=== PATIENT | male | born 1960 ===

== ENCOUNTER 2021-10-22 02:13 | Emergency (ER) | payer SELFPAY ==
[2021-10-22] MEDS ORDERED: SODIUM CHLORIDE 0.9% 1000 ML 1,000 ML IV ONE (02:20)
[2021-10-22] MEDS ORDERED: ASPIRIN 81 MG TAB CHEW PO ONE (02:20)
[2021-10-22] MEDS ORDERED: MORPHINE 2 MG/1 ML INJ IV ONE (02:21)
[2021-10-22] MEDS ORDERED: NITROGLYCERIN 0.4 MG TAB SUBL SL PRN (02:21)
--- NOTE | 2021-10-22 02:25 | Emergency Department Report ---
ED General Adult HPI - General Stated complaint: CHEST PAIN PUI?: No Time Seen by Provider: 10/22/21 02:19 Source: patient - History of Present Illness Initial comments: This is a 61-year-old male with medical history of hypertension came to the ER today with 1 hour history of pressure-like chest pain. According to the charge nurse patient was clutching his chest while in the waiting area and fell down but not a syncopal episode. Patient endorses numbness to his left shoulder and left upper extremity. Patient denies anything makes it better or any makes it worse. Patient denies myocardial infarction with cardiac stents in the past. Patient denies smoking or using cocaine and also denies family history of myocardial infarction less than 65 years old. Patient denies any other symptoms. - Related Data Previous Rx's Medication Instructions Recorded Last Taken Type Cyclobenzaprine HCl [Flexeril 5 MG 5 mg PO TID #12 tab 10/22/21 Unknown Rx TAB] Allergies Allergy/AdvReac Type Severity Reaction Status Date / Time No Known Allergies Allergy Unverified 10/22/21 02:34 ED Review of Systems ROS: Stated complaint: CHEST PAIN Other details as noted in HPI Comment: All other systems reviewed and negative Constitutional: no symptoms reported, see HPI Eyes: as per HPI ENT: as per HPI Respiratory: no symptoms reported Cardiovascular: chest pain. denies: palpitations, dyspnea on exertion, orthopnea, edema, syncope Endocrine: no symptoms reported, see HPI Gastrointestinal: as per HPI Genitourinary: as per HPI Musculoskeletal: as per HPI Skin: as per HPI Neurological: numbness (To left shoulder and left upper extremity.) Psychiatric: as per HPI Hematological/Lymphatic: as per HPI ED Past Medical Hx - Past Medical History Previous Medical History?: Yes Hx Hypertension: Yes - Medications Home Medications: Home Medications Medication Instructions Recorded Confirmed Last Taken Type Cyclobenzaprine HCl [Flexeril 5 MG 5 mg PO TID #12 tab 10/22/21 Unknown Rx TAB] ED Physical Exam - General Limitations: No Limitations General appearance: alert, in no apparent distress - Head Head exam: Present: atraumatic, normocephalic, normal inspection - Eye Eye exam: Present: normal appearance, PERRL, EOMI Pupils: Present: normal accommodation - ENT ENT exam: Present: normal exam, normal orophraynx - Neck Neck exam: Present: normal inspection, full ROM - Respiratory Respiratory exam: Present: normal lung sounds bilaterally - Cardiovascular Cardiovascular Exam: Present: regular rate, normal rhythm, normal heart sounds - GI/Abdominal GI/Abdominal exam: Present: soft - Extremities Exam Extremities exam: Present: normal inspection, full ROM, normal capillary refill - Back Exam Back exam: Present: normal inspection, full ROM - Neurological Exam Neurological exam: Present: alert, altered, oriented X3, CN II-XII intact - Psychiatric Psychiatric exam: Present: normal affect, normal mood - Skin Skin exam: Present: warm, normal color ED Course Vital Signs 10/22/21 10/22/21 10/22/21 02:22 02:45 03:04 Temperature 98 F Pulse Rate 75 76 Respiratory 18 18 Rate Blood Pressure 207/115 Blood Pressure 170/93 [Left] O2 Sat by Pulse 100 97 100 Oximetry 10/22/21 10/22/21 10/22/21 03:28 03:30 03:46 Temperature Pulse Rate 69 70 70 Respiratory 12 14 11 L Rate Blood Pressure 122/76 122/76 Blood Pressure [Left] O2 Sat by Pulse 96 95 94 Oximetry 10/22/21 10/22/21 10/22/21 04:00 04:16 04:30 Temperature Pulse Rate 64 66 77 Respiratory 11 L 11 L 15 Rate Blood Pressure 120/70 120/70 Blood Pressure [Left] O2 Sat by Pulse 95 94 96 Oximetry ED Medical Decision Making - Lab Data Result diagrams: 10/22/21 02:33 10/22/21 02:33 - EKG Data -: EKG Interpreted by Me EKG shows normal: sinus rhythm Rate: normal - EKG Data When compared to previous EKG there are: previous EKG unavailable Interpretation: no acute changes, normal EKG 10/22/21 02:24 SINUS RHYTHM AT 71 BPM; NO ST ELEVATION OR DEPRESSION; NO WELLEN WAVES. - Medical Decision Making Delta troponin negative patient states that all his symptoms resolved. But only with neck soreness that is worsened with movement. I have informed patient that he must make a follow-up appointment with primary care provider to be seen within 2 days for possible outpatient stress test and patient understood. Patient was informed to return to the ER if there are any new symptom. Critical care attestation.: If time is entered above; I have spent that time in minutes in the direct care of this critically ill patient, excluding procedure time. ED Disposition Clinical Impression: Non-cardiac chest pain, Sore neck Disposition: 01 HOME / SELF CARE / HOMELESS Is pt being admited?: No Does the pt Need Aspirin: No Condition: Stable Instructions: Nonspecific Chest Pain, Adult Additional Instructions: Make a follow-up appointment with your primary care provider to be seen within 2 to 3 days for further outpatient work-up for noncardiac chest pain with possible stress test. Go to the any emergency room if you experience any chest discomfort Prescriptions: Cyclobenzaprine HCl [Flexeril 5 MG TAB] 5 mg PO TID #12 tab Time of Disposition: 05:38
[2021-10-22 02:43] LABS: Hematocrit 44.6 % (35.5-45.6); Hemoglobin 15.1 gm/dl (11.8-15.2); Mean Corpuscular HGB Conc 34 % (32-34); Mean Corpuscular Volume 89 fl (84-94); Platelet Count 170 K/mm3 (140-440); Red Blood Count 5.02 M/mm3 (3.65-5.03); Red Cell Distribution Width 13.2 % (13.2-15.2)
--- NOTE | 2021-10-22 02:54 | XRay Report ---
CHEST 1 VIEW 10/22/2021 2:42 AM INDICATION / CLINICAL INFORMATION: chest pain. COMPARISON: None available. FINDINGS: SUPPORT DEVICES: None. HEART / MEDIASTINUM: No significant abnormality. LUNGS / PLEURA: No significant pulmonary or pleural abnormality. No pneumothorax. ADDITIONAL FINDINGS: No significant additional findings. IMPRESSION: 1. No acute findings. Signer Name: Ahsan Sloan DO Signed: 10/22/2021 2:50 AM Workstation Name: [id number]
[2021-10-22 03:06] LABS: INR 0.8 (0.87-1.13)
[2021-10-22 03:07] LABS: Partial Thromboplastin Time 29.6 Sec. (24.2-36.6)
[2021-10-22 03:53] LABS: Bilirubin,Urine NEG (Negative); Blood,Urine NEG (Negative); Color,Urine Straw (Yellow); Protein,Urine <15 mg/dL mg/dL (Negative); Urobilinogen,Urine < 2.0 mg/dL (<2.0)
[2021-10-22 03:55] LABS: Bacteria,Urine 1+ /HPF (Negative); RBC,Urine < 1.0 /HPF (0.0-6.0); WBC,Urine < 1.0 /HPF (0.0-6.0)
[2021-10-22 04:04] LABS: Alanine Aminotransferase 31 units/L (7-56); Albumin 4.4 g/dL (3.9-5); BUN/Creatinine Ratio 15; Blood Urea Nitrogen 16 mg/dL (9-20); Calcium 9.1 mg/dL (8.4-10.2); Chol/HDL Ratio 3.61 %; HDL Cholesterol 44 mg/dL (40-59); Hemolysis Index 28; LDL Cholesterol,Direct 81 mg/dL (50-130)
[2021-10-22 04:05] LABS: Creatine Kinase MB < 1.0 ng/mL (0.0-4.0)
[2021-10-22 05:19] LABS: Creatine Kinase MB 2.3 ng/mL (0.0-4.0)
[2021-10-22 06:33] VITALS: BP 123/76
--- NOTE | 2021-10-23 12:08 | Electrocardiograph Report ---
[facility] Test Date: 2021-10-22 Test Time: 02:16:36 Pat Name: MARS JORGENSEN Department: Room: Gender: M Automation Test Developer: BLANCA : 1960 Requested By: ELOISE HOU Order Number: [id number] Reading MD: Hugo Green Measurements Intervals [place] Rate: 71 P: 51 SC: 177 QRS: 26 QRSD: 98 T: 40 QT: 384 QTc: 417 Interpretive Statements Sinus rhythm Probable left atrial enlargement Probable left ventricular hypertrophy No previous ECG available for comparison Electronically Signed On 10-23-2021 12:07:37 EDT by Hugo Green
== END 2021-10-22 07:00 | disposition home or self-care (01) ==
LOC: ED 02:13
DX: R07.9 Chest pain, unspecified (principal); M54.2 Cervicalgia; I10 Essential (primary) hypertension
CPT/HCPCS: 36415; 71045; 80053; 80061; 81001; 82550; 82553; 83735; 84484; 85027; 85610; 85730; 93005; 96361; 96374; 99284; J2270; J7030